=== PATIENT | female | born 1970 | race Hispanic/Latino ===

== ENCOUNTER → 2022-06-05 | Outpatient (CLI) | payer BC | END | disposition home or self-care (01) | LOC: RAH 09:57 | PROVIDERS: ATTEND Urology | DX: N32.89 Other specified disorders of bladder (principal); R31.29 Other microscopic hematuria | CPT/HCPCS: 76770 ==

== ENCOUNTER 2023-03-31 17:12 | Emergency (ER) | payer BC ==
[~2023-03-31] VITALS: Ht 160 cm; Wt 75.7 kg
[2023-03-31 17:23] VITALS: BP 138/79; PULSE 90; RESP 16; O2SAT 98
[2023-03-31 18:12] LABS: RAPID GROUP A STREP negative (NEGATIVE)
[2023-03-31 18:24] LABS: SARS-CoV-2, RNA, NAAT NEGATIVE SARS CoV-2 (NEGATIVE)
[2023-03-31 18:32] LABS: INFLUENZA TYPE A Negative For Type A (NEGATIVE)
[2023-03-31 18:33] LABS: INFLUENZA TYPE B Positive For Type B (NEGATIVE)
[2023-03-31] MEDS ORDERED: OSEL75 PO (18:58)
[2023-03-31] MEDS ORDERED: GUAI600T50 PO (19:03)
[2023-03-31] MEDS ORDERED: BENZ-39 PO (19:03)
[2023-03-31] MEDS ORDERED: D-ME355L6 PO (19:03)
[2023-03-31] MEDS ORDERED: KETOROLAC 30MG VIAL (30MG/ML) IM ONE (19:30)
[2023-03-31] MEDS: ACETAMINOPHEN WITH CODEINE 1 TAB TAB PO PRN ×2 (19:33→19:47)
[2023-03-31] MEDS ORDERED: ACETAMINOPHEN 325 MG TAB ONE (19:40)
[2023-03-31] MEDS ORDERED: ACETAMINOPHEN 325 MG TAB PO ONE (20:00)
== END 2023-03-31 19:51 | disposition home or self-care (01) ==
LOC: EDH 17:12
DX: J10.1 Influenza due to other identified influenza virus with other respiratory manifestations (principal); R05.9 Cough, unspecified; Z20.822 Contact with and (suspected) exposure to COVID-19; Z98.890 Other specified postprocedural states
CPT/HCPCS: 99284; 71045; 87635; 87880; 87804 ×2; 96372; C9803; J1885